=== PATIENT | female | born 1995 | race Caucasian/White ===

== ENCOUNTER 2017-03-18 03:22 | Emergency (ER) | payer BC ==
--- NOTE | 2017-03-18 03:45 | Emergency Department Record ---
History of Present Illness - General Chief Complaint: Abdominal Pain Stated Complaint: ABDOMINAL PAIN Time Seen by Provider: 03/18/17 03:44 Source: Patient - History of Present Illness Initial Comments: The patient states she has abdominal pain around her belly button which began around 11 p.m. tonight (4 hours ago). She has had problems with abdominal pain in the past "but this was much sharper." She states earlier on Sunday, she felt her heart feel faint, got nauseated, dizzy and then fainted in front of her friend who caught her and prevented her from any significant injury. She aroused immediately after that episode. She states she is a virgin, has never had sex, and is currently on her menses. Her urine has had a bad smell for one week and she has dysuria. She has a history of UTI, yeast infection, ovarian cyst. MD Complaint: Abdominal pain - Related Data Home Medications Medication Instructions Recorded Confirmed Last Taken No Home Med [NO HOME MEDS] 03/18/17 03/18/17 Unknown Allergies Allergy/AdvReac Type Severity Reaction Status Date / Time bee pollen Allergy throat Verified 03/18/17 03:32 closes brompheniramine Allergy PT UNSURE Verified 03/18/17 03:32 [From Dimetapp OF REACTION (brompheniramine-PPA)] ketorolac [From Toradol] Allergy PT UNSURE Verified 03/18/17 05:07 OF REACTION phenylpropanolamine Allergy PT UNSURE Verified 03/18/17 03:32 [From Dimetapp OF REACTION (brompheniramine-PPA)] Sulfa (Sulfonamide Allergy RASH Verified 03/18/17 03:32 Antibiotics) codeine AdvReac VOMITING Verified 03/18/17 03:32 Review of Systems Reviewed: No additional complaints except as noted below Constitutional: Reports: As per HPI. Denies: Chills, Fever, Malaise, Night sweats, Weakness, Weight change Eyes: Reports: As per HPI. Denies: Eye discharge, Eye pain, Photophobia, Vision change ENT: Reports: As per HPI. Denies: Congestion, Dental pain, Ear pain, Epistaxis , Hearing loss, Throat pain Respiratory: Reports: As per HPI. Denies: Cough, Dyspnea, Hemoptysis, Stridor, Wheezes Cardiovascular: Reports: As per HPI. Denies: Arrhythmia, Chest pain, Dyspnea on exertion, Edema, Murmurs, Orthopnea, Palpitations, Paroxysmal nocturnal dyspnea, Rheumatic Fever, Syncope Endocrine: Reports: As per HPI. Denies: Fatigue, Heat or cold intolerance, Polydipsia, Polyuria Gastrointestinal: Reports: As per HPI. Denies: Abdominal pain, Constipation, Diarrhea, Hematemesis, Hematochezia, Melena, Nausea, Vomiting Genitourinary: Reports: As per HPI. Denies: Abnormal menses, Discharge, Dyspareunia, Dysuria, Frequency, Hematuria, Incontinence, Retention, Urgency Musculoskeletal: Reports: As per HPI. Denies: Arthralgia, Back pain, Gout, Joint swelling, Myalgia, Neck pain Skin: Reports: As per HPI. Denies: Bruising, Change in color, Change in hair/ nails, Lesions, Pruritus, Rash Neurological: Reports: As per HPI. Denies: Abnormal gait, Confusion, Headache, Numbness, Paresthesias, Seizure, Tingling, Tremors, Vertigo, Weakness Psychiatric: Reports: As per HPI. Denies: Anxiety, Auditory hallucinations, Depression, Homicidal thoughts, Suicidal thoughts, Visual hallucinations Hematological/Lymphatic: Reports: As per HPI. Denies: Anemia, Blood Clots, Easy bleeding, Easy bruising, Swollen glands Physical Exam - General General Appearance: Alert, Oriented x3, Cooperative, No acute distress - Head Head exam: Normal inspection - Eye Eye exam: Normal appearance, PERRL Pupils: Normal accommodation - ENT ENT exam: Normal exam, Mucous membranes moist, Normal external ear exam, Normal orophraynx, TM's normal bilaterally Ear exam: Normal external inspection. negative: External canal tenderness Nasal Exam: Normal inspection. negative: Discharge, Sinus tenderness Mouth exam: Normal external inspection, Tongue normal Teeth exam: Normal inspection. negative: Dental caries Throat exam: Normal inspection. negative: Tonsillar erythema, Tonsillar exudate - Neck Neck exam: Normal inspection, Full ROM. negative: Lymphadenopathy, Meningismus , Tenderness - Respiratory Respiratory exam: Normal lung sounds bilaterally. negative: Respiratory distress - Cardiovascular Cardiovascular Exam: Regular rate, Normal rhythm, Normal heart sounds - GI/Abdominal GI/Abdominal exam: Soft, Normal bowel sounds, Tenderness (tender LUQ, LMQ, and suprapubic. Several old tiny surgical scars well healed.). negative: Distended , Guarding, Rebound, Rigid - Rectal Rectal exam: Deferred - exam: Deferred - Extremities Extremities exam: Normal inspection, Full ROM, Normal capillary refill. negative: Calf tenderness, Pedal edema, Tenderness - Back Back exam: Reports: Normal inspection, CVA tenderness (L), Full ROM. Denies: CVA tenderness (R), Muscle spasm, Rash noted, Tenderness - Neurological Neurological exam: Alert, CN II-XII intact, Normal gait, Oriented X3, Reflexes normal. negative: Motor sensory deficit - Psychiatric Psychiatric exam: Normal affect, Normal mood - Skin Skin exam: Dry, Intact, Normal color, Warm Course - Reevaluation(s) Reevaluation #1: All labs normal including her UA. Pulse jumped to 120 on orthostatic vitals. She states she slept all day long, didn't get out of bed, thus didn't eat or drink. 03/18/17 05:02 Reevaluation #2: Patient has had ongoing symptoms like tonight for which she has had workups, even hospitalization, including the passing out episodes. She is feeling better but is not completely painfree. Discussed reasons to NOT get CT of her abdomen/ pelvis and patient and mother agree with this. they will follow up with her PCP in [place] tomorrow if she is not improved. She agrees to increase her fluid intake as well. 03/18/17 05:39 Medical Decision Making - Management Options MDM Management: No Additional Work-up Planned - Data Complexity MDM Data: Labs Ordered and/or Reviewed (All normal. ) - Lab Data Result diagrams: 03/18/17 04:12 03/18/17 04:12 Disposition Disposition: Discharge Clinical Impression: Dysmenorrhea Abdominal pain Qualifiers: Abdominal location: lower abdomen, unspecified Qualified Code(s): R10.30 - Lower abdominal pain, unspecified Disposition: Home, Self-Care Condition: (1) Good Instructions: Premenstrual Syndrome (ED), Dysmenorrhea (ED), Abdominal Pain (ED ) Additional Instructions: Increase fluid intake. Ibuprofen alternated with tylenol as directed as needed for pain. Quality - Quality Measures Quality Measures: N/A - Blood Pressure Screening Does Patient Have Any of the Following: No Blood Pressure Classification: Normal BP Reading Systolic Measurement: 115 Diastolic Measurement: 78 Screening for High Blood Pressure: < Normal BP, F/U Not Required > [[id number]]
[2017-03-18] MEDS ORDERED: ONDANSETRON HCL IV 4 MG/2 ML VIAL IV ONE (04:05)
[2017-03-18] MEDS ORDERED: 0.9 % SODIUM CHLORIDE 1,000 ML BAG IV ONE (04:05)
[2017-03-18 04:27] LABS: URINE APPEARANCE SL CLOUDY; URINE BILIRUBIN NEGATIVE (NEGATIVE); URINE BLOOD LARGE (NEGATIVE); URINE COLOR YELLOW; URINE GLUCOSE (UA) NEGATIVE (NEGATIVE); URINE KETONE NEGATIVE (NEGATIVE); URINE LEUKOCYTE ESTERASE TRACE (NEGATIVE); URINE NITRITE NEGATIVE (NEGATIVE); URINE PROTEIN NEGATIVE (NEGATIVE); URINE UROBILINOGEN 0.2 E.U./dL (0.20 - 1.00)
[2017-03-18 04:29] LABS: BASO % 0.3 % (0-6); EOS % 1.6 % (0-6); GRAN % 63.9 % (47-80); HEMATOCRIT 40.1 % (35.0-47.0); HEMOGLOBIN 13.1 gm/dl (11.6-16.0); LYMPH % 24.4 % (16-45); MEAN CELL VOLUME 82.3 fl (81-97); MEAN CORPUSCULAR HEMOGLOBIN 26.9 pg (27-33); MEAN CORPUSCULAR HGB CONC 32.7 g/dl (32-36); MEAN PLATELET VOLUME 12.8 fl (7.4-10.4); MONO % 9.8 % (0-9); PLATELET COUNT 161 K/uL (130-400); RED BLOOD COUNT 4.87 M/uL (3.80-5.40); RED CELL DISTRIBUTION WIDTH 12.6 % (11.5-14.5); WHITE BLOOD COUNT W/O DIFF 6.8 K/uL (4.2-12.2)
[2017-03-18 04:38] LABS: HCG,QUALITATIVE URINE NEGATIVE (NEGATIVE); URINE BACTERIA FEW; URINE RBC >50 (NONE SEEN); URINE SQUAMOUS EPITHELIAL CELL 0 - 2 /hpf
[2017-03-18 04:40] LABS: BLOOD UREA NITROGEN 13 mg/dL (6-20); CREATININE 0.6 mg/dL (0.5-0.9); EST GLOMERULAR FILTRATION RATE > 60 mL/min; TOTAL PROTEIN 7.2 g/dL (6.6-8.7)
[2017-03-18 04:42] LABS: GLUCOSE,RANDOM 90 mg/dL (74-109)
[2017-03-18 04:45] LABS: ALB/GLOB RATIO 1.6 (1.1-1.8); ALBUMIN 4.4 g/dL (4.0-5.0); ALKALINE PHOSPHATASE 49 U/L (35-104); ALT/SGPT 15 U/L (<33); AST/SGOT 16 U/L (10.0-35.0); LIPASE 29 U/L (13-60)
[2017-03-18] MEDS ORDERED: KETOROLAC 30 MG/ML VIAL IVP ONE (05:01)
[2017-03-18] MEDS ORDERED: HYOSCYAMINE SULFATE ODT 0.125 MG TAB.SUBL SL ONE (05:07)
== END 2017-03-18 05:58 | disposition home or self-care (01) ==
LOC: ER 03:22
DX: N94.6 Dysmenorrhea, unspecified (principal); R10.30 Lower abdominal pain, unspecified; R42 Dizziness and giddiness; R11.0 Nausea; R30.0 Dysuria
CPT/HCPCS: 99284 ×2; 96374; 96375; 96361; 83690; 85025; 80053; 81001; 81025; J1980; J2405; J7030